=== PATIENT | female | born 1990 | race Caucasian/White ===

== ENCOUNTER 2018-08-13 07:42 | Outpatient (CLI) | payer OTHER ==
[2018-08-13] MEDS ORDERED: RINGERS SOLUTION,LACTATED 1,000 ML IV PRN (08:16)
[2018-08-13] MEDS ORDERED: TERBUTALINE SULFATE INJ/PF 1 MG/1 ML SDV ONE (09:28)
[2018-08-13] MEDS ORDERED: TERBUTALINE SULFATE INJ/PF 1 MG/1 ML SDV SUBCUT ONE (09:30)
[2018-08-13 09:40] LABS: APPEARANCE,URINE CLOUDY; BILIRUBIN,URINE NEGATIVE (NEGATIVE); COLOR,URINE YELLOW; GLUCOSE, URINE NEGATIVE (NEGATIVE); KETONES,URINE NEGATIVE (NEGATIVE); LEUKOCYTE ESTERASE,URINE LARGE (NEGATIVE); NITRITE,URINE NEGATIVE (NEGATIVE); PROTEIN,URINE NEGATIVE (NEGATIVE); URINE SPECIFIC GRAVITY 1.018; UROBILINOGEN,URINE NEGATIVE mg/dL (<2.0)
[2018-08-13 09:59] LABS: URINE AMPHETAMINES SCREEN NEGATIVE; URINE BARBITURATES SCREEN NEGATIVE; URINE BENZODIAZEPINES SCREEN NEGATIVE; URINE COCAINE SCREEN NEGATIVE; URINE MARIJUANA (THC) SCREEN NEGATIVE; URINE METHADONE SCREEN NEGATIVE; URINE PHENCYCLIDINE SCREEN NEGATIVE
--- NOTE | 2018-08-13 10:08 | L&D Progress Notes ---
PROGRESS NOTES Datetime Report Generated by CPN: 08/13/2018 10:08 PROGRESS NOTE Impression Other: Breech Procedures- Other: external version Plan: Deliver- Section Informed Consent Obtained: Risks, Benefits and Alternatives Discussed Comment: I attempted to turn the baby vertex but was unable to move the head out of the RUQ. Unsuccessful version attempt. We will schedule a . The office was contacted. FETUS A FHR - Baseline: 140 Variability: Moderate 6-25bpm Decelerations: None FHR Category: Category I SIGNATURE SIGNATURE: [id number] Signature: with User ID: [email or web address]
--- NOTE | 2018-08-13 11:07 | Non Stress Test Report ---
Non Stress Test Datetime Report Generated by CPN: 08/13/2018 11:06 DEMOGRAPHIC EGA NST: 38.1 INDICATION Indication for Study: Ordered by Provider MONITORING Monitor Explained: Monitor Explained; Test Explained Time on Monitor: 08/13/2018 10:00 Time off Monitor: 08/13/2018 10:25 NST Duration: 25 NST INTERVENTIONS NST Interventions: PO Hydration; Reposition Patient Physician Notified NST: Dr. Florez BABY A: [id number] BABY A Movement : Present Contraction Frequency : irregular FHR Baseline : 140 Accelerations : 15X15 Decelerations : None Variability : Moderate 6-25bpm NST Review: Meets Criteria for Reactive NST NST Review and Verified By : JEAN CARLOS Doshi Results: Reactive NST REPORT Report Trigger: Send Report
== END 2018-08-13 09:40 | disposition home or self-care (01) ==
LOC: LC 07:42
PROVIDERS: ATTEND Obstetrics & Gynecology
PROC: 4A1HXCZ Monitoring of Products of Conception, Cardiac Rate, External Approach (ICD-10-PCS; principal; 2018-08-13)
DX: O32.1XX0 Maternal care for breech presentation, not applicable or unspecified (principal); Z3A.38 38 weeks gestation of pregnancy
CPT/HCPCS: 59025; 86900; 86901; 36415; 86850; 81005; 86592; 80307; J3105

== ENCOUNTER 2018-08-24 05:00 | Inpatient (IN) | payer OTHER ==
[2018-08-23 12:25] LABS: ABSOLUTE EOSINOPHILS # (AUTO) 0.1 10^3/uL (0.0-0.6); ABSOLUTE LYMPHOCYTES (AUTO) 1.9 10^3/uL (0.5-4.7); ABSOLUTE MONOCYTES (AUTO) 0.7 10^3/uL (0.1-1.4); BASOPHILS % (AUTO) 0.3 % (0-2); EOSINOPHILS % (AUTO) 0.6 % (0-6); HEMATOCRIT 34.4 % (36.0-47.0); HEMOGLOBIN 11.9 g/dL (12.0-15.5); LYMPHOCYTES % (AUTO) 15.2 % (13-45); MEAN CORPUSCULAR HEMOGLOBIN 29.6 pg (27.0-33.4); MEAN CORPUSCULAR HGB CONC 34.5 g/dL (32.0-36.0); MEAN CORPUSCULAR VOLUME 86 fl (80-97); MONOCYTES % (AUTO) 5.6 % (3-13); PLATELET COUNT 337 10^3/uL (150-450); RED BLOOD COUNT 4.02 10^6/uL (3.72-5.28); RED CELL DISTRIBUTION WIDTH 14.3 % (11.5-14.0); SEGMENTED NEUTROPHILS % (AUTO) 78.3 % (42-78); TOTAL CELLS COUNTED % (AUTO) 100 %; WHITE BLOOD COUNT 12.8 10^3/uL (4.0-10.5)
[2018-08-23 12:38] LABS: APPEARANCE,URINE SLIGHTLY-CLOUDY; BILIRUBIN,URINE NEGATIVE (NEGATIVE); COLOR,URINE YELLOW; GLUCOSE, URINE NEGATIVE (NEGATIVE); KETONES,URINE NEGATIVE (NEGATIVE); LEUKOCYTE ESTERASE,URINE MODERATE (NEGATIVE); NITRITE,URINE NEGATIVE (NEGATIVE); PROTEIN,URINE NEGATIVE (NEGATIVE); URINE SPECIFIC GRAVITY 1.018; UROBILINOGEN,URINE NEGATIVE mg/dL (<2.0)
[2018-08-23 12:51] LABS: URINE AMPHETAMINES SCREEN NEGATIVE; URINE BARBITURATES SCREEN NEGATIVE; URINE BENZODIAZEPINES SCREEN NEGATIVE; URINE COCAINE SCREEN NEGATIVE; URINE MARIJUANA (THC) SCREEN NEGATIVE; URINE METHADONE SCREEN NEGATIVE; URINE PHENCYCLIDINE SCREEN NEGATIVE
[2018-08-24] MEDS ORDERED: CEFAZOLIN 1 GM/D5W RTU 1 GM/50 ML RTUPB IV PRN (05:22)
[2018-08-24] MEDS ORDERED: PROPOFOL INJ 200 MG/20 ML VIAL IV ONE (07:28)
[2018-08-24] MEDS ORDERED: OXYTOCIN 10 UNIT/ML VIAL ONE (07:28)
[2018-08-24] MEDS ORDERED: EPHEDRINE SULFATE INJ 50 MG/1 ML AMPULE ONE (07:29)
[2018-08-24] MEDS ORDERED: FENTANYL CITRATE INJ/PF 100 MCG/2 ML AMPUL ONE (07:29)
[2018-08-24] MEDS ORDERED: MIDAZOLAM 2 MG/2 ML INJ ONE (07:29)
[2018-08-24] MEDS ORDERED: BUPIVACAINE HCL/DEX-WATER/PF 15 MG/2 ML AMPULE ONE (07:29)
[2018-08-24] MEDS ORDERED: PROMETHAZINE HCL INJ 25 MG/1 ML VIAL IV PRN ×2 (08:17→08:54)
[2018-08-24] MEDS ORDERED: DIPHENHYDRAMINE HCL 50 MG/ML VIAL IV PRN (08:17)
[2018-08-24] MEDS ORDERED: FENTANYL CITRATE INJ/PF 100 MCG/2 ML AMPUL IV PRN ×3 (08:17)
[2018-08-24] MEDS ORDERED: ONDANSETRON HCL INJ/PF 4 MG/2 ML SDV IV PRN (08:17)
[2018-08-24] MEDS ORDERED: MEPERIDINE HCL/PF INJ 25 MG/1 ML DISP.SYRIN IV PRN (08:17)
[2018-08-24] MEDS ORDERED: MORPHINE SULFATE 10 MG/ML INJ IV PRN ×2 (08:17→08:54)
[2018-08-24] MEDS ORDERED: RINGERS SOLUTION,LACTATED 1,000 ML IV PRN (08:54)
[2018-08-24] MEDS ORDERED: SIMETHICONE 80 MG TAB.CHEW PO PRN (08:54)
[2018-08-24] MEDS ORDERED: OXYTOCIN/NORMAL SALINE 20 UNIT/1,000 ML RTUINJ IV PRN (08:54)
[2018-08-24] MEDS ORDERED: OXYCODONE-ACETAMINOPHEN 5-325 MG TABLET PO PRN (08:54)
[2018-08-24] MEDS ORDERED: ACETAMINOPHEN 1,000 MG/100 ML RTUPB IV PRN (08:54)
[2018-08-24] MEDS ORDERED: DIPH/PERTUSS(ACELL)/TETANUS VAC/PF 0.5 ML SYR (>=10YO) IM PRN (08:54)
[2018-08-24] MEDS ORDERED: MEASLES,MUMPS&RUBELLA VACC/PF 0.5 ML VIAL SUBCUT PRN (08:54)
[2018-08-24] MEDS ORDERED: ACETAMINOPHEN 325 MG TABLET PO PRN (08:54)
[2018-08-24] MEDS ORDERED: ACETAMINOPHEN 1,000 MG/100 ML RTUPB IV ONE (09:13)
[2018-08-24] MEDS ORDERED: ONDANSETRON HCL INJ/PF 4 MG/2 ML SDV ONE (09:14)
[2018-08-24] MEDS ORDERED: PROMETHAZINE HCL INJ 25 MG/1 ML VIAL ONE (09:14)
[2018-08-24] MEDS ORDERED: KETOROLAC TROMETHAMINE INJ/PF 30 MG/1 ML SDV ONE (09:15)
[2018-08-24] MEDS ORDERED: MORPHINE SULFATE 10 MG/ML INJ ONE (10:24)
--- NOTE | 2018-08-24 11:07 | OPERATIVE REPORT E ---
Operative Report NAME: MARK ADAMS : 1990 AGE: 28Y DATE OF SURGERY: 08/24/2018 ROOM: 222 PREOPERATIVE DIAGNOSIS: INTRAUTERINE AT 39 WEEKS AND 1 DAY, BREECH PRESENTATION. POSTOPERATIVE DIAGNOSIS: INTRAUTERINE AT 39 WEEKS AND 1 DAY, BREECH PRESENTATION. OPERATION: Low transverse hysterotomy cesarian section with conversion to T-incision for delivery of the fetus. SURGEON: FERMIN MADRIGAL M.D. ANESTHESIA: Dr. Cindi Rodriguez with a spinal FINDINGS: Male infant in double footling breech presentation; Apgars of 8 and 9. COMPLICATIONS: Extension of the uterus for delivery of the fetus. ESTIMATED BLOOD LOSS: 850 mL. PATHOLOGY: None. PROCEDURE IN DETAIL: The patient was taken to the operating room, prepared, and draped in a normal sterile fashion in a supine position with a leftward tilt. A transverse skin incision was made with a scalpel and carried through to the underlying layer of fascia. With the same scalpel the fascia was excised in the midline and extended bilaterally with Lloyd. The fascia was dissected from the rectus muscles sharply and the rectus muscle was divided. The peritoneal cavity was entered sharply with Mayos. With good visualization of the bladder and the uterus, a bladder blade was inserted. The hysterotomy was nicked with a scalpel and extended laterally with surgeon finger fraction. The infant's feet were then grasped and the infant's legs were easily delivered. The arms and shoulders were then swept in the Pinard maneuver and easily delivered. The head was in an extended position and several manipulations were tried to flex the head for delivery and its head would not flex, therefore an extension of the incision was made with bandage scissors on the uterus, guarding the parts with the surgeon's hand. This was performed twice until the 's head could be flexed, using the pressure on the maxilla and the infant was then delivered without further difficulty. The nose and mouth were suctioned with the suction bulb, the cord was clamped and cut, and the was handed off to the awaiting refining machine operator. Cord blood was collected. The placenta was removed manually. The uterus was exteriorized and cleared of clots and debris. The hysterotomy was closed with 0 Monocryl in a running, locked fashion. A second layer of the same suture was used to imbricate to ensure hemostasis. The uterus was then returned to the abdomen. Peritoneal cavity was cleared of clots and debris. The rectus muscle and peritoneum were reapproximated with 2 mattress stitches of 2-0 chromic. The fascia was closed with 0 Vicryl. The subcutaneous layer was closed with plain catgut, and the skin was closed with 4-0 Vicryl. The patient tolerated the procedure well. Sponge, lap, and needle counts were correct x2. The patient was taken to recovery in stable condition. DICTATING PHYSICIAN: FERMIN MADRIGAL M.D. [id number] PHY#: [id number] ID: [id number] JOB#: [id number] ACCT: [id number] cc:FERMIN MADRIGAL M.D. >
[2018-08-24] MEDS ORDERED: IBUPROFEN 800 MG TABLET PO SCH (12:00)
[2018-08-24] MEDS ORDERED: PHENYLEPHRINE HCL INJ/PF 10 MG/1 ML SDV ONE (12:27)
[2018-08-24] MEDS: OXYCODONE-ACETAMINOPHEN 5-325 MG TABLET PO PRN (12:47)
[2018-08-24] MEDS ORDERED: KETOROLAC TROMETHAMINE INJ/PF 30 MG/1 ML SDV IV SCH (14:00)
[2018-08-24] MEDS ORDERED: OXYTOCIN/NORMAL SALINE 20 UNIT/1,000 ML RTUINJ ONE (14:43)
[2018-08-24] MEDS: KETOROLAC TROMETHAMINE INJ/PF 30 MG/1 ML SDV IV SCH ×2 (14:48→21:22)
[2018-08-24] MEDS: DOCUSATE SODIUM 100 MG CAPSULE PO SCH ×2 (17:27→18:31)
[2018-08-24] MEDS: PRENATAL VITAMIN W DHA CAPSULE PO SCH (18:31)
[2018-08-25] MEDS ORDERED: LACTATED RINGERS 1000 ML IV PRN (05:00)
[2018-08-25] MEDS ORDERED: NORMAL SALINE 1000 ML (RENAL PATIENTS) IV PRN (05:00)
[2018-08-25] MEDS ORDERED: LIDOCAINE 0.5% INJ-PF (5 MG/ML) 50 ML SDV SUBCUT PRN (05:00)
[2018-08-25] MEDS: IBUPROFEN 800 MG TABLET PO SCH ×3 (05:51→17:45)
[2018-08-25 07:13] LABS: HEMATOCRIT 31.3 % (36.0-47.0); HEMOGLOBIN 10.9 g/dL (12.0-15.5); MEAN CORPUSCULAR HEMOGLOBIN 29.5 pg (27.0-33.4); MEAN CORPUSCULAR HGB CONC 34.7 g/dL (32.0-36.0); MEAN CORPUSCULAR VOLUME 85 fl (80-97); PLATELET COUNT 318 10^3/uL (150-450); RED BLOOD COUNT 3.69 10^6/uL (3.72-5.28); RED CELL DISTRIBUTION WIDTH 14.8 % (11.5-14.0); WHITE BLOOD COUNT 15.1 10^3/uL (4.0-10.5)
[2018-08-25] MEDS: DOCUSATE SODIUM 100 MG CAPSULE PO SCH ×2 (09:43→17:44)
[2018-08-25] MEDS: PRENATAL VITAMIN W DHA CAPSULE PO SCH (09:43)
--- NOTE | 2018-08-25 13:46 | PDOC PROGRESS REPORT ---
Subjective-OB Progress Note for:: 08/25/18 Subjective: 28yo G1 now P1 s/p primary due to breech presentation. Pt. ambulating, voiding, and passing gas without difficulty. Reports pain well tolerated with medication. Denies any concerns at this time. Physical Exam (OB) Vital Signs: Temp Pulse Resp BP Pulse Ox 98.2 F 92 16 112/70 98 08/25/18 11:38 08/25/18 11:38 08/25/18 11:38 08/25/18 11:38 08/25/18 11:38 Intake & Output 08/24/18 08/25/18 08/26/18 06:59 06:59 06:59 Intake Total 1040 400 Output Total 1500 Balance -460 400 Weight 103.419 kg - General General Appearance: Appears well In distress: None - PIH/Pre-Eclampsia Headache: Absent Epigastric Pain: No Visual Changes: No - Dressing Removed: Yes - opsite dressing D&I Incision: Well Approximated - Lochia Lochia Amount: Scant < 10 ml Lochia Color: Rubra/Red - Abdomen Description: Tender, Soft Hernia Present: No Fundal Description: Firm, Midline Fundal Height: u/u - u/2 - Respiratory Respiratory Status: No respiratory distress - Extremities Upper extremity: Normal inspection Lower extremities: Normal inspection - Neurological Cognition: Normal Orientation: AAOx4 - Psychological Associated symptoms: Normal affect, Normal mood Objective-Diagnostic Laboratory: 08/25/18 06:40 08/25/18 06:40 WBC 15.1 H RBC 3.69 L Hgb 10.9 L Hct 31.3 L MCV 85 MCH 29.5 MCHC 34.7 RDW 14.8 H Plt Count 318 Assessment and Plan(PN) - Assessment and Plan (1) Acute blood loss anemia Is this a current diagnosis for this admission?: Yes Plan: increase dietary iron and FeSO4 BID (2) delivery indicated due to breech presentation Is this a current diagnosis for this admission?: Yes Plan: routine pp care continue to monitor for s/s of infection. (3) Delivery by section using T-shaped incision Is this a current diagnosis for this admission?: Yes Plan: routine pp care,will not be able to with future pregnancies, pt. aware (4) Qualifiers: Weeks of gestation: 39 weeks Qualified Code(s): Z3A.39 - 39 weeks gestation of Is this a current diagnosis for this admission?: Yes Plan: delivered - Time Spent with Patient Time with patient: Less than 15 minutes Medications reviewed and adjusted accordingly: Yes - Disposition Anticipated Discharge: Home Within: within 24 hours
[2018-08-26] MEDS: IBUPROFEN 800 MG TABLET PO SCH ×3 (00:26→14:17)
[2018-08-26] MEDS: DOCUSATE SODIUM 100 MG CAPSULE PO SCH (09:13)
[2018-08-26] MEDS: PRENATAL VITAMIN W DHA CAPSULE PO SCH (09:13)
[2018-08-26] MEDS: OXYCODONE-ACETAMINOPHEN 5-325 MG TABLET PO PRN (09:13)
--- NOTE | 2018-08-26 10:04 | PDOC DISCHARGE SUMMARY ---
Final Diagnosis Discharge Date: 08/26/18 - POD #2, doing well, denies depression feelings, Hx of Bipolar, currently no medicaitons. O+, - Final Diagnosis (1) Acute blood loss anemia Is this a current diagnosis for this admission?: Yes (2) delivery indicated due to breech presentation Is this a current diagnosis for this admission?: Yes (3) Delivery by section using T-shaped incision Is this a current diagnosis for this admission?: Yes (4) Is this a current diagnosis for this admission?: Yes Discharge Data - Discharge Medication Prescriptions: Ibuprofen [Motrin 800 mg Tablet] 800 mg PO Q6 #60 tablet Oxycodone HCl/Acetaminophen [Percocet 5-325 mg Tablet] 1 tab PO Q4HP PRN #30 tablet PRN Reason: Home Medications: Pnv,Calcium 72/Iron/Folic Acid [ Plus Tablet] 1 each PO DAILY 08/13/18 Ibuprofen [Motrin 800 mg Tablet] 800 mg PO Q6 #60 tablet 08/26/18 Oxycodone HCl/Acetaminophen [Percocet 5-325 mg Tablet] 1 tab PO Q4HP PRN #30 tablet 08/26/18 Reason(s) for Admission: Ceasarean Section-Primary Admission Note: Breech presentation Procedures: NST, Ultrasound Intrapartum Procedure(s): : Low Cervical, Transverse - Diagnosis Test Laboratory: Temp Pulse Resp BP Pulse Ox 98.1 F 93 18 105/67 98 08/26/18 07:49 08/26/18 07:49 08/26/18 07:49 08/26/18 07:49 08/26/18 07:49 08/23/18 08/23/18 08/25/18 11:10 11:35 06:40 RBC 4.02 3.69 L Hgb 11.9 L 10.9 L Hct 34.4 L 31.3 L Urine Opiates Screen NEGATIVE - Discharge information/Instructions Discharge Activity: No Driving, No Lifting Over 10 Pounds, Pelvic Rest Discharge Diet: As Tolerated Disposition: HOME, SELF-CARE Follow up with: [facility] in: 1, Weeks
[2018-08-26 12:39] VITALS: BP 110/67
--- NOTE | 2018-09-03 12:29 | Physician Advisory Note ---
Physician Advisor ProgressNote .: [facility] for this patient. Physician Advisor Statement: Please remember, all 3 points below are needed to support the dx Acute Blood Loss Anemia: 1. H/H must be low. 2. H/H must have dropped significantly, more than what could be seen in day to day lab value variance. Typically, a drop of 15% or more is felt to be a good rule of thumb for deciding whether a drop is significant. - This would mean a Hgb drop from 11.9 to 10.1 or below, for example, would support the dx of Ac Bld Loss Anemia. - If pt's prior baseline Hgb was 12.8+, documenting that prior baseline would support the dx of Acute Blood Loss Anemia. 3. The drop in H/H should be associated with use of resources during the hospital stay, such as ordering Fe tabs while pt is in hospital (not just at time of d/c), or repeating H/H more than 1x post-op. Thanks, CK
== END 2018-08-26 15:01 | disposition home or self-care (01) | DRG 788 ==
LOC: 2S 05:00
PROVIDERS: ADMIT Obstetrics & Gynecology; ATTEND Obstetrics & Gynecology
PROC: 4A1HXCZ Monitoring of Products of Conception, Cardiac Rate, External Approach (ICD-10-PCS; 2018-08-24)
PROC: 10D00Z1 Extraction of Products of Conception, Low, Open Approach (ICD-10-PCS; principal; 2018-08-24 07:45)
DX: O32.8XX0 Maternal care for other malpresentation of fetus, not applicable or unspecified (principal); O99.824 Streptococcus B carrier state complicating childbirth; O99.02 Anemia complicating childbirth; D64.9 Anemia, unspecified; Z3A.39 39 weeks gestation of pregnancy; Z37.0 Single live birth
CPT/HCPCS: 1961; 36415; 80307; 81001; 85025; 85027; 86850; 86900; 86901; 94799; J0131; J0690; J1885; J2250; J2270; J2370; J2405; J2550; J2590; J2704; J3010; J3490

== ENCOUNTER → 2019-02-17 | Outpatient (CLI) | payer OTHER ==
--- NOTE | 2019-02-17 17:07 | NEURO WORKBENCH EEG REPORT ---
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 The patient had 1 hour of sleep. This EEG was requested for possible seizures. EEG Interpretation This EEG was recorded in the awake, drowsy, and sleep states. The awake EEG is characterized by a well-organized background without a well-developed but a briefly noted, reactive posterior dominant rhythm of 11Hz. The remainder of the background consisted of a mix of alpha with some low amplitude beta activity. Drowsiness is characterized by slowing of the background rhythms. Vertex waves and sleep spindles were seen in the midline head regions. Photic stimulation resulted in a good driving response. Hyperventilation resulted in generalized slowing of the background. There were no epileptiform abnormalities. The EKG showed a regular rhythm. EEG Classification Normal EEG Impression This EEG is normal in the awake, drowsy, and sleep states. INTERPRETING NEUROLOGIST: Fatoumata Hall MD, FRCPC Board Certified in Neurology, with special qualification in Child Neurology, and in Clinical Neurophysiology [facility]
== END ==
LOC: NEURO 08:19
PROVIDERS: ATTEND Pediatrics
DX: R40.4 Transient alteration of awareness (principal)
CPT/HCPCS: 95819